=== PATIENT | male | born 1995 | race Two or more races ===

== ENCOUNTER 2016-11-19 12:21 | Emergency (ER) | payer OTHER ==
[~2016-11-19] VITALS: Ht 170.2 cm; Wt 82.1 kg
== END 2016-11-19 12:55 | disposition short-term general hospital (02) ==
LOC: ER 12:21
PROC: 0HQ0XZZ Repair Scalp Skin, External Approach (ICD-10-PCS; principal; 2016-11-19)
DX: S01.01XA Laceration without foreign body of scalp, initial encounter (principal); W22.8XXA Striking against or struck by other objects, initial encounter; F17.210 Nicotine dependence, cigarettes, uncomplicated